=== PATIENT | male | born 1935 | race Caucasian/White ===

== ENCOUNTER → 2018-02-03 | Outpatient (CLI) | payer OTHER ==
[~2018-02-03] MED LIST: ACET-66 PO; LEVO175T9 PO
== END | disposition home or self-care (01) ==
LOC: RAH 14:51
PROVIDERS: ATTEND Neurological Surgery
DX: M48.061 Spinal stenosis, lumbar region without neurogenic claudication (principal); M51.36 Other intervertebral disc degeneration, lumbar region
CPT/HCPCS: 72148

== ENCOUNTER 2018-02-06 08:00 | Observation (INO) | payer OTHER ==
[~2018-02-06] VITALS: Ht 165.1 cm; Wt 68.5 kg
[2018-02-06 09:10] VITALS: BP 131/73
[2018-02-06 09:12] LABS: BASOPHILS % (AUTO) 0.8 % (0.0-5.0); EOSINOPHILS % (AUTO) 4.3 % (0.0-8.0); HEMATOCRIT 40.9 % (42-54); LYMPHOCYTES % (AUTO) 23.6 % (21.0-51.0); MEAN CORPUSCULAR HEMOGLOBIN 30.1 pg (27.0-33.0); MEAN CORPUSCULAR HGB CONC 33.9 g/dL (32.0-36.0); MEAN CORPUSCULAR VOLUME 88.6 fL (79-99); MONOCYTES % (AUTO) 8.5 % (3.0-13.0); NEUTROPHILS % (AUTO) 62.8 % (40.0-77.0); PLATELET COUNT (AUTO) 360 K/uL (130-400); RED BLOOD CELL COUNT(AUTO) 4.61 MIL/uL (4.50-6.20); RED CELL DISTRIBUTION WIDTH 13.8 % (11.0-15.5); WHITE BLOOD COUNT (AUTO) 10.6 K/uL (4.8-10.8)
[2018-02-06 09:20] LABS: CREATININE 1.1 mg/dL (0.5-1.5); POTASSIUM 4.2 mmol/L (3.5-5.1)
[2018-02-06] MEDS ORDERED: ACET-66 PO (09:32)
[2018-02-06] MEDS ORDERED: LEVO175T9 PO (09:32)
[2018-02-11] VITALS (21 sets, daily range): BP systolic 108–142; BP diastolic 52–74
[2018-02-11] MEDS: CEFAZOLIN SODIUM 1 GM VIAL IVP SCH ×4 (06:00→18:34)
[2018-02-11] MEDS ORDERED: LACTATED RINGERS 1000ML 1,000 ML IV ONE (06:08)
[2018-02-11] MEDS ORDERED: BUPIVACAINE/EPI/PF 0.25% 30ML VIAL IJ ONE (06:43)
[2018-02-11] MEDS ORDERED: DURAMORPH PF1 MG/ML 10ML AMP IV ONE (06:43)
[2018-02-11] MEDS ORDERED: BACITRACIN 50,000 UNIT VIAL ONE (06:44)
[2018-02-11] MEDS ORDERED: THROMBIN-JMI 20000 UNIT KIT TP ONE (06:44)
[2018-02-11] MEDS ORDERED: HYDROMORPHONE 1 MG/1 ML AMP ONE (07:09)
[2018-02-11] MEDS ORDERED: SUCCINYLCHOLINE CHLORIDE 20 MG/ML 10 ML VIAL ONE (07:21)
[2018-02-11] MEDS ORDERED: LIDOCAINE PF 2% 5ML ABBOJECT ONE (07:21)
[2018-02-11] MEDS ORDERED: MIDAZOLAM HCL 1 MG/ML 2ML VIAL ONE (07:21)
[2018-02-11] MEDS ORDERED: ROCURONIUM 10MG/1ML SYR 10 MG/ML ML ONE (07:21)
[2018-02-11] MEDS ORDERED: PROPOFOL 10 MG/ML 20ML VIAL IV ONE ×4 (07:21→08:53)
[2018-02-11] MEDS ORDERED: FENTANYL CITRATE PF 50 MCG/1 ML 5ML AMP IV ONE (07:22)
[2018-02-11] MEDS ORDERED: EPHEDRINE SULFATE 50 MG/ML AMPULE ONE (07:34)
[2018-02-11] MEDS ORDERED: DEXAMETHASONE SOD PHOSPHATE 10MG/ML 1ML VIAL ONE (07:48)
[2018-02-11] MEDS ORDERED: GLYCOPYRROLATE 1 MG/5 ML SYRINGE ONE (08:50)
[2018-02-11] MEDS ORDERED: FENTANYL CITRATE PF 50 MCG/1 ML 2ML VIAL ONE (09:17)
[2018-02-11] MEDS ORDERED: MORPHINE SULFATE 2 MG/ML 1ML SYG IVP PRN (10:45)
[2018-02-11] MEDS ORDERED: PROMETHAZINE HCL 25 MG/ML 1ML AMPULE IM PRN (10:45)
[2018-02-11] MEDS ORDERED: HYDROCODONE/ACETAMINOPHEN 5/325 MG TAB PO PRN (10:45)
[2018-02-11] MEDS ORDERED: SODIUM CHLORIDE 0.9% 10 ML VIAL IVP PRN (10:45)
[2018-02-11] MEDS: DEXAMETHASONE SOD PHOSPHATE 4 MG/ML 1ML VIAL IVP SCH ×3 (12:25→22:56)
[2018-02-11] MEDS: ACETAMINOPHEN EXTRA STRENGTH 500 MG TABLET PO SCH ×2 (12:25→18:35)
[2018-02-11] MEDS: LACTATED RINGERS 1000ML 1,000 ML IV SCH ×2 (12:26→22:56)
[2018-02-12] VITALS: BP 123/60
[2018-02-12] MEDS: CEFAZOLIN SODIUM 1 GM VIAL IVP SCH ×2 (02:45→06:18)
[2018-02-12] MEDS: ACETAMINOPHEN EXTRA STRENGTH 500 MG TABLET PO SCH (02:45)
[2018-02-12 04:07] VITALS: BP 109/56
[2018-02-12] MEDS: DEXAMETHASONE SOD PHOSPHATE 4 MG/ML 1ML VIAL IVP SCH (04:57)
[2018-02-12] MEDS: LEVOTHYROXINE 100 MCG TABLET PO SCH ×2 (06:17→06:20)
[2018-02-12] MEDS: LEVOTHYROXINE 75 MCG TABLET PO SCH ×2 (06:17→06:20)
[2018-02-12 07:32] VITALS: BP 135/82
[2018-02-12 08:00] VITALS: BP 157/114
== END 2018-02-12 11:00 | disposition home or self-care (01) ==
LOC: EDUNIT# 09:30 → EDSTATUS 09:30 → DAHIP 02-11 05:35 → 4BH 02-11 11:25
PROVIDERS: ADMIT Neurological Surgery; ATTEND Neurological Surgery
DX: M48.07 Spinal stenosis, lumbosacral region (principal); E03.9 Hypothyroidism, unspecified
CPT/HCPCS: 36415; 63047; 63048 ×2; 72020; 80048; 85025; 90471; 96374; 96375; 96376 ×2; A4218; A4344; A4510; A4600; A4649 ×4; G0378 ×30; J0330; J0690 ×4; J1100 ×5; J1170; J2001; J2250; J2274; J2704 ×4; J3010 ×2; J3490 ×3; J7030; J7120 ×3; Q2038